=== PATIENT | male | born 1930 | race Caucasian/White ===

== ENCOUNTER 2017-03-05 12:07 | Day surgery (SDC) | payer MEDICARE, OTHER ==
[2017-03-03 13:45] LABS: BASOPHILS 0.3 %; BASOPHILS ABSOLUTE 0.02 10/3/uL (0.0-0.16); EOSINOPHILS 1.3 %; HEMATOCRIT 37.1 % (40.0-51.0); HEMOGLOBIN 11.7 g/dL (13.6-17.8); IMMATURE GRANULOCYTES 0.1 %; IMMATURE GRANULOCYTES ABSOLUTE 0.01 10/3/uL (0.0-0.11); LYMPHOCYTES ABSOLUTE 2.24 10/3/uL (0.67-4.30); MEAN CORPUS HGB CONC 31.5 g/dL (32.0-36.0); MEAN CORPUSCULAR HEMOGLOB 27.8 pg (26.0-34.0); MEAN PLATELET VOLUME 10.9 fL (9.2-13.0); MONOCYTES 8.3 %; MONOCYTES ABSOLUTE 0.64 10/3/uL (0.21-1.20); NEUTROPHILS ABSOLUTE 4.72 10/3/uL (2.02-8.40); PLATELET COUNT 170 10/3/uL (150-400); RBC DISTRIBUTION WIDTH 14.4 % (12.0-16.0); RED CELL COUNT 4.21 10/6/uL (4.7-6.1); WHITE BLOOD CELLS 7.7 10/3/uL (4.5-10.5)
[2017-03-03 13:47] LABS: MANUAL DIFF NO %; MEAN CORPUSCULAR VOLUME 88.1 fL (80-100)
[2017-03-03 14:01] LABS: A/G RATIO 1.3 (0.7-1.9); ALBUMIN 3.6 G/DL (3.5-5.0); ALKALINE PHOSPHATASE 70 U/L (45-117); CALCIUM, SERUM 9.2 MG/DL (8.5-10.4); CHLORIDE, SERUM 105 MMOL/L (96-112); CO2 (CARBON DIOXIDE) 27 MMOL/L (24-34); GFR AFRICAN AMERICAN 47 ML/MIN (>=60); GFR NON AFRICAN AMERICAN 41 ML/MIN (>=60); GLOBULIN 2.7 G/DL (2.5-4.1); GLUCOSE, SERUM 227 MG/DL (60-99); POTASSIUM, SERUM 5.5 MMOL/L (3.5-5.3); SGOT(AST) 18 U/L (5-40); SGPT(ALT) 14 U/L (5-65); SODIUM, SERUM 136 MMOL/L (135-148); TOTAL BILIRUBIN 0.6 MG/DL (0-1.2); TOTAL PROTEIN 6.3 G/DL (6.0-8.5)
[2017-03-03 14:02] LABS: BUN (BLOOD UREA NITROGEN) 24 MG/DL (6-23)
--- NOTE | ~2017-03-05 | OP ---
Record Of Operation [facility] [address] [facility] [place]. [address] NAME: JOYCE BURCH HOMER : [birth year] STATUS : [facility]#: [id number] AGE: 86 ADM/REG DATE : 03/05/17 MR#: [id number] REPORT SERV DATE: 03/05/17 DICTATED BY: HARPAL GALINDO DATE: 03/05/17 REPORT STATUS : Draft TRANSCRIBED BY: MODL DATE: 03/05/17 DATE OF PROCEDURE: 03/05/2017 PREOPERATIVE DIAGNOSES: 1. Bladder lesion. 2. History of bladder cancer. POSTOPERATIVE DIAGNOSES: 1. Bladder lesion. 2. History of bladder cancer. PROCEDURE PERFORMED: Cystoscopy with bladder biopsies. SURGEON: Harpal Galindo M.D. ANESTHESIA: General. COMPLICATIONS: None. BLOOD LOSS: 5 mL. DRAIN: 18-Peruvian Montes catheter. INDICATION: Mr. Burch is an 86-year-old with history of bladder tumor, resected at the left bladder base/left lateral wall. He has had induction BCG and is on maintenance BCG. He has had biopsy-proven recurrences of this area before. His most recent surveillance cystoscopy showed areas suspicious for recurrence at the left lateral upper bladder wall. He presents for biopsy. TECHNIQUE: Informed consent was obtained. He received Levaquin preop. He was brought to the operating room. General anesthesia was administered. The genitals and perineum were prepped and draped in the lithotomy position in sterile fashion. Rigid cystoscopy was performed. The urethra was normal. Prostate showed trilobar BPH. The mucosa of the median lobe was hyperemic and abnormal appearing, though it had no papillary appearance. At the bladder dome, there were multiple areas of punctate erythema. At the left lateral wall superior to the area of the scar, were multiple areas of punctate erythema suspicious for CIS. Biopsies were obtained from the dome of the left lateral wall and median lobe of the prostate. No stones or papillary lesions were seen. All biopsy sites were fulgurated for hemostasis. I elected to leave a Montes catheter for 24 hours. An 18-Peruvian two-way Montes catheter was placed with 20 mL in the balloon. The catheter was irrigated well. He was taken to recovery room in satisfactory condition. NATASHA/ANGELA Record Of [facility] [address] [place]. [address] NAME: JOYCE BURCH HOMER : [birth year] STATUS : [facility]#: [id number] AGE: 86 ADM/REG DATE : 03/05/17 MR#: [id number] REPORT SERV DATE: 03/05/17 DICTATED BY: HARPAL GALINDO DATE: 03/05/17 REPORT STATUS : Draft TRANSCRIBED BY: ANGELA DATE: 03/05/17 Harpal Galindo M.D. / [id number] CC: Jose Alfredo Partida M.D.
[~2017-03-05 12:07] MED LIST: ASAB PO; AZOPT OPH; CIP2 PO; DIABETA5 PO; DITRO5 PO; FLOMAX4 PO; GLUCOPHAGE1000 MG PO; ISTALOL0.5 %; LOP25 PO; MULTIVIT/MIN PO; NEUR100 PO; NORCO1 TA1 PO; NORV25 PO; OCUVITE PO; PLAVIX PO; PRIN20 PO; PYR100B PO; TYLENOL ARTH650 MG PO; Tylenol Arthritis PO; ZOCOR40 PO
== END 2017-03-05 18:19 | disposition home or self-care (01) ==
LOC: SDC 12:07
PROVIDERS: Urology
PROC: 0TBB8ZX Excision of Bladder, Via Natural or Artificial Opening Endoscopic, Diagnostic (ICD-10-PCS; principal; 2017-03-05 14:00)
DX: N30.20 Other chronic cystitis without hematuria (principal); E11.9 Type 2 diabetes mellitus without complications; I25.2 Old myocardial infarction; N18.3 Chronic kidney disease, stage 3 (moderate); I12.9 Hypertensive chronic kidney disease with stage 1 through stage 4 chronic kidney disease, or unspecified chronic kidney disease; Z85.51 Personal history of malignant neoplasm of bladder; Z98.41 Cataract extraction status, right eye; Z98.42 Cataract extraction status, left eye
CPT/HCPCS: 36415; 80053; 82962; 85025; 88305; 93005; J2405; J3010